=== PATIENT | female | born 2000 | race Hispanic/Latino ===

== ENCOUNTER 2021-04-01 20:02 | Emergency (ER) | payer OTHER ==
[~2021-04-01] VITALS: Ht 160 cm; Wt 56.7 kg
[2021-04-01 21:37] VITALS: BP 132/78
== END 2021-04-01 21:37 | disposition home or self-care (01) ==
LOC: EDH 20:02
DX: R07.89 Other chest pain (principal)
CPT/HCPCS: 93005

== ENCOUNTER 2024-10-18 05:45 | Emergency (ER) | payer BC, OTHER ==
[~2024-10-18] VITALS: Ht 160 cm; Wt 74.4 kg
--- NOTE | 2024-10-18 06:23 | ERN ---
General Chief Complaint: OB>20 weeks gest. Stated Complaint: ABD PAIN WITH PREGNACY Time Seen by MD: 06:12 Source: patient History of Present Illness Initial Comments Patient is a 23-year-old female greater than 20 weeks who was woken from her sleep with left upper quadrant abdominal pain. She is very concerned about her baby and comes to the hospital to have it examined. Patient has no other symptoms. No fevers no chills no nausea no vomiting no diarrhea no change in urinary habits. Allergies: Coded Allergies: No Known Drug Allergies (Unverified Allergy, Unknown, 04/01/21) Past Medical History Past Medical History: No Pertinent History Past Surgical History: None Family History Family History: Negative Social History Social History: Other Female( History) LMP: Apr 20, 2024 : 1 Para: 0 Aborts: 0 Constitutional: (-) chills, (-) diaphoresis, (-) fever, (-) malaise, (-) weakness, (-) other documentation EENTM: (-) eye pain, (-) blurred vision, (-) tearing, (-) double vision, (-) ear pain, (-) ear discharge, (-) nose pain, (-) nose congestion, (-) throat pain, (-) Throat swelling, (-) mouth pain, (-) tooth pain, (-) mouth swelling, (-) other documentation Respiratory: (-) cough, (-) orthopnea, (-) short of breath, (-) stridor, (-) wheezing, (-) other documentation Cardiovascular: (-) chest pain, (-) edema, (-) palpitations, (-) syncope, (-) dyspnea on exertion, (-) other documentation Gastrointestinal/Abdominal: (-) nausea, (-) vomiting, (-) diarrhea, (-) abdominal pain, (-) abdominal distention, (-) constipation, (-) rectal bleeding, (-) dark stool/melena, (-) other documentation Genitourinary: (-) vaginal discharge, (-) vaginal bleeding, (-) dysuria, (-) frequency, (-) hematuria, (-) pain, (-) other documentation Musculoskeletal: (-) Neck pain, (-) back pain, (-) Flank Pain, (-) joint pain, (-) joint swelling, (-) muscle pain, (-) muscle stiffness, (-) gout, (-) other documentation Neuro: (-) altered mental status, (-) headache, (-) syncope, (-) paralysis, (-) numbness, (-) seizure, (-) pre-existing deficit, (-) tremors, (-) weakness, (-) dizziness, (-) slurred speech, (-) vertigo, (-) other documentation Physical Exam General Appearance: (+) mild distress Orientation: (+) alert, (+) oriented x 3 Head/Face Trauma: No Eye: bilateral eye normal inspection, bilateral eye PERRL, bilateral eye EOMI Ear, Nose, Throat: (+) hearing grossly normal, (+) normal ENT inspection, (+) moist mucous membraine Neck: (+) normal inspection, (+) supple, (+) full range of motion Respiratory: (+) chest non-tender, (+) lungs clear, (+) well ventilated Heart: (+) regular, (+) no gallop Vascular: (+) no edema, (+) normal peripheral pulse Gastrointestinal: (+) soft, (+) non-tender, (+) bowel sound present Gastrointestinal Comment Abdominal exam is benign. No tenderness no peritoneal signs. Results Laboratory and Microbiology Lab and Micro Result Laboratory Tests Test 10/18/24 06:50 10/18/24 06:54 Sodium Level 136 mmol/L (136-145) Potassium Level 3.6 mmol/L (3.5-5.1) Chloride Level 103 mmol/L (101-111) Carbon Dioxide Level 27 mmol/L (21-32) Blood Urea Nitrogen 5 mg/dL (7-18) L Creatinine 0.3 mg/dL (0.5-1.0) L Glomerular Filtration Rate Calc 152 mL/min (>90) Random Glucose 74 mg/dL (70-105) Total Calcium 8.8 mg/dL (8.5-10.1) Urine Color LIGHT-YELLOW (YELLOW) Urine Appearance CLOUDY (CLEAR) H Urine pH 6.5 (5.0-8.0) Urine Specific [place] 1.008 (1.001-1.031) Urine Protein NEGATIVE mg/dL (NEGATIVE) Urine Glucose (UA) NEGATIVE mg/dL (NEGATIVE) Urine Ketones NEGATIVE mg/dL (NEGATIVE) Urine Occult Blood NEGATIVE (NEGATIVE) Urine Nitrate NEGATIVE (NEGATIVE) Urine Bilirubin NEGATIVE mg/dL (NEGATIVE) Urine Urobilinogen 0.2 mg/dL (0.2-1.0) Urine Leukocyte Esterase 75 [place]/uL (NEGATIVE) H Urine RBC 0-1 /HPF (0-1) Urine WBC 2-5 /HPF (0-1) H Urine Squamous Epithelial Cells MANY /HPF (0-2) Urine Bacteria RARE /HPF (None Seen) Labs Reviewed?: Yes EKG/XRAY/US/CT/MRI Ultrasound Comment [facility] [address] [place] [address] IMAGING REPORT Signed PATIENT: CHANDRIKA IGLESIAS MR#: [id number] : 2000 SEX: F AGE: 23 LOCATION: [facility] ORDER 2 STATUS: [facility] ER REPORT#: [id number] SERVICE 1 REASON: LUQ pain ORDERING PHYSICIAN: JOSH TERRELL MD PROCEDURE: OB >14 - US OB >14 WEEKS US OB >14 WEEKS HISTORY: Left upper abdominal pain COMPARISON: None TECHNIQUE: ultrasound study was performed. FINDINGS: There is single intrauterine gestation with estimated gestational age of 25 weeks. heart rate is 150 beats per minute. The fetus is in cephalic presentation with oblique lie. weight is estimated to be 362 grams. Amniotic fluid volume is decreased at 6.49 centimeter. The placenta is located anteriorly. No evidence of placenta previa is seen. There is no evidence of nuchal cord. IMPRESSION: 1. There is single intrauterine gestation with estimated gestational age of 25 weeks. heart rate is 152 beats per minute. ADOLPH is decreased at 6.49 cm. DICTATED BY: OH MENDIETA MD DATE: 10/18/24922 ELECTRONICALLY SIGNED BY: OH MENDIETA MD DATE: 10/18/24925 MDM I will order a transvaginal ultrasound. I will also order a UA and a chemistry panel to rule out a UTI and gestational diabetes. MDM: DIFFERENTIAL DIAGNOSIS: ABDOMINAL PAIN IN , GREATER THAN 20 WEEKS GESTATION, RATIONALE: TESTS CONSIDERED AND ORDERED SECONDARY TO SHARED DECISION MAKING INCLUDE: PREVIOUS OUTSIDE RECORDS REVIEWED: OLD ER VISITS. RISK OF COMPLICATION AND/OR MORBIDITY OR MORTALITY OF PATIENT MANAGEMENT: NONE MEDICATIONS-PER MEDICATION RECONCILIATION NEED FOR HOSPITALIZATION: PATIENT DOES MEET CRITERIA FOR HOSPITALIZATION. NEED FOR EMERGENCY MAJOR/MINOR SURGERY: NO THERE ARE NO SOCIAL CONCERNS WITH THIS PATIENT. PRESCRIPTION DRUG MANAGEMENT PRESCRIPTIONS WILL INCLUDE SYMPTOMATIC CARE PATIENT'S PRIOR EXTERNAL MEDICAL RECORDS FROM OTHER ER VISITS WERE REVIEWED BY ME INDICATED. PRIOR TESTING AND RESULTS FROM PREVIOUS VISITS WERE REVIEWED. PRIOR TESTS WERE TAKEN INTO ACCOUNT WITH MEDICAL DECISION MAKING AND RESOURCE UTILIZATION, INDEPENDENT HISTORIAN/HISTORIANS WERE USED TO OBTAIN COMPLETE MEDICAL HISTORY. I INDEPENDENTLY INTERPRETED THE TEST THAT WERE PERFORMED, RESULTS WERE REVIEWED BY ME AND CONSIDERED FINDINGS ON RADIOLOGY IF ORDERED. MEDICAL MANAGEMENT AND EXAMINATION INTERPRETATION DISCUSSIONS WERE HAD BY ME WITH OTHER QUALIFIED HEALTHCARE PROFESSIONALS INDICATED FOR THE PATIENT'S CARE. PATIENT WILL BE TRANSFERRED TO [facility] UNDER THE CARE OF DR. DECKER FOR ONGOING MANAGEMENT OF ABDOMINAL PAIN IN GREATER THAN 25 WEEKS BY DATE. ED Course Orders Procedure Category Date Status Time *Nursing CPOE 10/18/24 Transmitted Communication: 05:59 Us Ob >14 Weeks US 10/18/24 Resulted 06:12 Basic Metabolic Panel LAB 10/18/24 Complete 06:24 Urinalysis Profile LAB 10/18/24 Complete 06:24 Culture Urine ANN 10/18/24 In Process 08:02 Vital Signs Date Time Temp Pulse Resp B/P (MAP) Pulse Ox O2 Delivery O2 Flow Rate FiO2 10/18/24 08:06 97.9 80 18 106/66 98 Room Air* 0 21 10/18/24 06:57 98.4 81 17 108/69 100 Room Air* 0 21 10/18/24 05:46 98.4 84 18 125/82 100 Room Air 0 DX & DISP Disposition: Transfer Decision to Admit Time: 11:20 Departure Impression: Primary Impression: Abdominal pain affecting Additional Impression: greater than 20 weeks gestation Condition: Stable Referrals: SELF,REFERRAL (PCP) JOHS TERRELL MD October 18, 2024 06:23 MULUGETA MAE MD October 18, 2024 11:20
[2024-10-18 07:09] LABS: CREATININE 0.3 mg/dL (0.5-1.0); POTASSIUM 3.6 mmol/L (3.5-5.1)
[2024-10-18 07:57] LABS: APPEARANCE,URINE CLOUDY (CLEAR); BILIRUBIN,URINE NEGATIVE (NEGATIVE); COLOR,URINE LIGHT-YELLOW (YELLOW); GLUCOSE, URINE (UA) NEGATIVE (NEGATIVE); KETONES,URINE NEGATIVE (NEGATIVE); LEUKOCYTE ESTERASE ,URINE 75 Leu/uL (NEGATIVE); NITRATE,URINE NEGATIVE (NEGATIVE); OCCULT BLOOD,URINE NEGATIVE (NEGATIVE); PH,URINE 6.5 (5.0-8.0); PROTEIN,URINE NEGATIVE (NEGATIVE); UROBILINOGEN,URINE 0.2 mg/dL (0.2-1.0)
[2024-10-18 08:00] LABS: ADD UA MICROSCOPIC YES
[2024-10-18 08:02] LABS: BACTERIA,URINE RARE /HPF (None Seen); MUCUS,URINE RARE LPF (None Seen); RBC,URINE 0-1 /HPF (0-1); SQUAMOUS EPITHELIAL CELL,UR MANY /HPF (0-2)
[2024-10-18 08:06] VITALS: BP 106/66; PULSE 80; RESP 18; TEMP 97.9; O2SAT 98
--- NOTE | 2024-10-18 09:26 | HMCIMG ---
US OB >14 WEEKS HISTORY: Left upper abdominal pain COMPARISON: None TECHNIQUE: ultrasound study was performed. FINDINGS: There is single intrauterine gestation with estimated gestational age of 25 weeks. heart rate is 150 beats per minute. The fetus is in cephalic presentation with oblique lie. weight is estimated to be 362 grams. Amniotic fluid volume is decreased at 6.49 centimeter. The placenta is located anteriorly. No evidence of placenta previa is seen. There is no evidence of nuchal cord. IMPRESSION: 1. There is single intrauterine gestation with estimated gestational age of 25 weeks. heart rate is 152 beats per minute. ADOLPH is decreased at 6.49 cm.
--- NOTE | 2024-10-18 10:50 | NUR ---
TRANSFER REQUEST TO [facility] FOR OB SERVICE. DR MAE SPOKE WITH DR WALT DECKER FOR 1:1 REPORT. JERONIMO SNOW
--- NOTE | 2024-10-18 11:01 | NUR ---
TRANSFER CALL PLACE TO [facility] SPOKE WITH RHETT INTAKE NURSE AND INFORMATION PROVIDED, WILL CALL BACK. JERONIMO SNOW
--- NOTE | 2024-10-18 11:09 | NUR ---
TRANSFER CALL BACK FROM INTAKE NURSE WITH ACCEPTANCE AT [address] WALT DECKER TO [facility] OB TRIAGE AND PRIMARY NURSE TO CALL REPORT TO [phone] AND EMS WHEN READY. JERONIMO SNOW
--- NOTE | 2024-10-18 11:33 | NUR ---
PT REPORT GIVEN TO GWENDOLYN MAXWELL FROM OB TRIAGE AT [facility].
--- NOTE | 2024-10-18 11:35 | NUR ---
EMS MADE AWARE OF OB TRANSFER. THEY WILL DISPATCH AMBULANCE.
== END 2024-10-18 11:25 | disposition short-term general hospital (02) ==
LOC: EDH 05:45
DX: O26.892 Other specified pregnancy related conditions, second trimester (principal); R10.12 Left upper quadrant pain; Z3A.25 25 weeks gestation of pregnancy
CPT/HCPCS: 36415; 76805; 80048; 81001; 87086; 99285